=== PATIENT | female | born 1965 ===

== ENCOUNTER 2024-05-28 10:29 | Day surgery (SDC) | payer OTHER ==
[~2024-05-28] VITALS: Ht 162.6 cm; Wt 87.8 kg
[~2024-05-28 10:29] MED LIST: Balanced Salt Epinephrine Irrigation Solution 500 mL IR SCH; Diazepam 5 MG Tab PO PRN; Diazepam 5 MG Tab PO SCH; Lidocaine HCl/Pf 1% 5 ML VIAL XX SCH; Moxifloxacin HCL 0.5 MG/0.1 ML 0.4MLSYR RIGHTEYE SCH; Ondansetron 4 MG SoluTab MM PRN; PHENYLEPHRINE\\TROPICAMIDE\\TETRACAINE OPHTHALMIC DILATING SOLN RIGHTEYE PRN; Povidone-Iodine 450 DROP/30 ML Solution ONE; Povidone-Iodine 450 DROP/30 ML Solution RIGHTEYE SCH; Tetracaine HCl/Pf 0.5% Opth Soln 4 ml ONE; Triamcinolone Inj Susp 40 MG / ML 1ML Vial INJ SCH; Triamcinolone Inj Susp 40 MG / ML 1ML Vial ONE
[2024-05-28] MEDS ORDERED: Diazepam 10 MG Tab ONE (10:52)
[2024-05-28] MEDS ORDERED: FAMO20 (11:10)
[2024-05-28] MEDS ORDERED: ALBU90OI (11:11)
[2024-05-28] MEDS ORDERED: ALVESCO6.1 G1 (11:11)
[2024-05-28] MEDS ORDERED: STIOLTO RESPIMAT4 G1 (11:12)
[2024-05-28] MEDS ORDERED: Neurontin 100100 MG (11:12)
[2024-05-28] MEDS ORDERED: CITALOPRAM HBR10 MG (11:13)
[2024-05-28] MEDS ORDERED: [UNRECOGNIZED DRUG - OTHER] (11:17)
[2024-05-28] MEDS ORDERED: Acetaminophen 500 MG Tab ONE (12:22)
== END 2024-05-28 12:44 | disposition home or self-care (01) ==
LOC: ORSCSDS 10:29
PROVIDERS: Ophthalmology
PROC: 08RJ3JZ Replacement of Right Lens with Synthetic Substitute, Percutaneous Approach (ICD-10-PCS; principal; 2024-05-28 12:00)
DX: H25.811 Combined forms of age-related cataract, right eye (principal); J44.9 Chronic obstructive pulmonary disease, unspecified; I10 Essential (primary) hypertension; R73.03 Prediabetes; Z99.81 Dependence on supplemental oxygen; E66.9 Obesity, unspecified; Z68.33 Body mass index [BMI] 33.0-33.9, adult; Z79.899 Other long term (current) drug therapy
CPT/HCPCS: 82947; A9270; J3301; V2632